=== PATIENT | female | born 1980 | race Two or more races ===

== ENCOUNTER 2024-11-17 09:32 | Emergency (ER) | payer MEDICAID, SELFPAY ==
[2024-11-17] VITALS (7 sets, daily range): BP systolic 109–131; BP diastolic 63–83; PULSE 63–86; RESP 16–19; TEMP 36.6–38.2; O2SAT 95–99; BMI 33.8
--- NOTE | 2024-11-17 09:40 | EKG_ITS ---
[facility] Test Date: 2024-11-17 Pat Name: MARGUERITE DAVIS Department: Room: - Gender: Male [employer]ice: : 1980 Requested By: Joe Herrera (GISSELLE) Order Number: [id number] Reading MD: Joe Herrera (GRANT COORDINATOR) Measurements Intervals Burney Rate: 84 P: 47 AR: 126 QRS: 1 QRSD: 96 T: 21 QT: 360 QTc: 428 Interpretive Statements SINUS RHYTHM NONSPECIFIC T-WAVE ABNORMALITY No previous ECG available for comparison /store/S0/[id number]/ecg/[id number].pdf
--- NOTE | 2024-11-17 09:56 | XR_ITS ---
Examination: AP chest single view Technique: AP sitting portable chest single view Exam date and time: November 17, 2024 1007 hrs. Indications: Shortness of breath and syncopal episode today Findings: Normal heart size No pneumonia or pulmonary edema. The osseous structures are intact Impression: No active disease
--- NOTE | 2024-11-17 09:57 | PD.EDRME ---
Rapid Medical Screening Exam RME Arrival date/time: 11/17/24 09:32 44-year-old male presents to the emergency department today stating she had a syncopal episode today patient noted to be febrile Chief Complaint: Syncope / Near Syncope Time Seen by Provider: 11/17/24 09:39 Vital signs: Vital Signs Temperature 100.7 F H 11/17/24 09:52 Pulse Rate 86 11/17/24 09:52 Respiratory Rate 19 11/17/24 09:52 Blood Pressure 131/83 H 11/17/24 09:52 Pulse Oximetry (%) 99 11/17/24 09:52 Oxygen Delivery Method Room Air 11/17/24 09:52
[2024-11-17] MEDS: IBUPROFEN TAB 600 MG TABLET PO (10:00)
[2024-11-17 11:03] LABS: Basophils # (Auto) 0.1 Thou/mm3 (0.0-0.2); Basophils % (Auto) 1 % (0-2.5); Eosinophils % (Auto) 0 % (0-10); Hemoglobin 11.7 g/dL (12.0-16.0); Immature Granulocytes % (Auto) 0 % (0-0); Immature Granulocytes Auto 0.04 Thou/mm3 (0.00-0.00); Lymphocytes # (Auto) 0.9 Thou/mm3 (1.0-4.8); Lymphocytes % (Auto) 10 % (10-50); Mean Corpuscular HGB Conc 32.5 g/dl (31.0-37.0); Mean Corpuscular Hemoglobin 24.8 pg (25.0-35.0); Mean Corpuscular Volume 76 fL (80-100); Monocytes # (Auto) 0.9 Thou/mm3 (0.0-0.8); Monocytes % (Auto) 9 % (0-12); Neutrophils # (Auto) 7.4 Thou/mm3 (1.8-7.7); Neutrophils % (Auto) 80 % (37-80); Nucleated Red Blood Cell % 0 /100 WBC (0); Platelet Count 357 Thou/mm3 (140-440); RDW Standard Deviation 43.8 fL (36.4-46.3); Red Blood Count 4.72 Miln/mm3 (4.00-5.20); White Blood Count 9.3 Thou/mm3 (3.6-11.0)
[2024-11-17 11:13] LABS: Alanine Aminotransferase 16 U/L (10-49); Albumin, Serum 4.7 gm/dL (3.5-5.0); Albumin/Globulin Ratio 1.8 (1.2-2.2); Alkaline Phosphatase 91 U/L (46-116); Anion Gap 9 (7-16); Aspartate Amino Transferase 17 U/L (0-34); BUN/Creatinine Ratio 16 Ratio (12-20); Bilirubin,Total 0.5 mg/dL (0.3-1.2); Blood Urea Nitrogen 13 mg/dL (9-23); Calcium 8.5 mg/dL (8.3-10.6); Calcium (Corrected) 8.5 mg/dL (8.5-10.1); Carbon Dioxide 25.1 mMol/L (20.0-31.0); Chloride 102 mMol/L (98-107); Creatinine (Component) 0.8 mg/dL (0.6-1.3); Estimated Creatinine Clearance 90.1 mL/min (>60); Globulin 2.6 gm/dL (2.3-3.5); Glucose 125 mg/dL (74-106); Osmolality,Calculated 273 (275-295); Potassium 3.5 mMol/L (3.4-5.1); Sodium 136 mMol/L (136-145); Total Protein 7.3 gm/dL (5.7-8.2); Troponin I < 0.002 ng/mL (0.0-0.045); eGFR > 60 See Note
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
[2024-11-17] MEDS: SODIUM CHLORIDE 0.9% 1000 ML 1,000 ML 999 ML IV (11:44)
[2024-11-17] MEDS: OSELTAMIVIR 75 MG CAPSULE PO (11:47)
[2024-11-17] MEDS: ACETAMINOPHEN 500 MG TABLET 1000 MG PO (11:48)
[2024-11-17 11:54] LABS: Alcohol, Blood Medical < 3.0 mg/dL (0-10.0)
[2024-11-17 11:54] LABS: Collection Type, Urine Clean Catch
[2024-11-17 12:29] LABS: HCG Qualitative,Urine Negative
[2024-11-17 12:39] LABS: Bacteria,Urine Rare; Bilirubin,Urine Negative (Negative); Blood,Urine 1+ (Negative); Color,Urine Yellow (Lt Yel-Yel); Culture Indicated,Urine Not Indicated; Glucose, Urine Negative (Negative); Hyaline Casts,Urine < 1 /hpf (0-1); Ketones,Urine Negative (Negative); Leukocyte Esterase,Urine Negative (Negative); Nitrite,Urine Negative (Negative); Protein,Urine Trace (Neg - Trace); RBC,Urine 10 /hpf (0-3); Specific Gravity,Urine 1.028 (1.001-1.035); Squamous Epithelial Cell,Urine 16 /hpf (0-5); Urobilinogen,Urine Negative mg/dL (0.0-1.0); WBC,Urine 2 /hpf (0-5)
[2024-11-17 12:40] LABS: Amphetamine/Methamp Scrn,U Negative (Negative); Barbiturate Screen,Urine Negative (Negative); Benzodiazepines Screen,Urine Negative (Negative); Benzoylecgonine Screen, Ur Negative (Negative); Fentanyl Screen,Urine Negative (Negative); Opiate Screen,Urine Negative (Negative); THC Screen,Urine Negative (Negative)
[2024-11-17 12:40] LABS: Clarity,Urine Hazy (Clear/Hazy)
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
== END 2024-11-17 18:46 | disposition home or self-care (01) ==
PROVIDERS: Nurse Practitioner Primary Care; Emergency Provider Emergency Medicine; PCP Family Medicine
DX: J10.1 Influenza due to other identified influenza virus with other respiratory manifestations (principal); R55 Syncope and collapse; R51.9 Headache, unspecified; R94.31 Abnormal electrocardiogram [ECG] [EKG]; W19.XXXA Unspecified fall, initial encounter
CPT/HCPCS: 36415; 70450; 71045; 80053; 80307; 80320; 81001; 81025; 84484; 85025; 87400; 87811; 93005; 96360; 96361; 99284; J7030; A9270; G0480

== ENCOUNTER 2025-02-11 15:38 | Emergency (ER) | payer MEDICAID, SELFPAY ==
[2025-02-11 15:50] VITALS: BP 171/98; PULSE 76; RESP 18; TEMP 36.8; O2SAT 98
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
[2025-02-11] MEDS: KETOROLAC INJ 60 MG/2 ML VIAL 30 MG IM (19:37)
[2025-02-11] MEDS: CYCLObenzaPRINE 5 MG TABLET PO (19:37)
== END 2025-02-11 19:42 | disposition home or self-care (01) ==
PROVIDERS: Emergency Provider Emergency Medicine
DX: S16.1XXA Strain of muscle, fascia and tendon at neck level, initial encounter (principal); S09.90XA Unspecified injury of head, initial encounter; V89.2XXA Person injured in unspecified motor-vehicle accident, traffic, initial encounter
CPT/HCPCS: 70450; 72125; 96372; 99284; J1885; A9270